=== PATIENT | female | born 1935 | race Caucasian/White ===

== ENCOUNTER 2017-09-22 08:45 | Inpatient (IN) | payer OTHER, BC ==
[~2017-09-22] VITALS: Ht 152.4 cm; Wt 88.4 kg
[~2017-09-22 08:45] MED LIST: ALEVE220 M2 PO; ANTIVERT25 MG PO; ASPIR-LOW81 MG PO; CALCIUM 500 +1 EACH PO; DAILY VITE1 EAC1 PO; GLUCOSAMINE CH1 EAC6 PO; LOPRESSOR25 MG PO; LOW DOSE ASPIRI81 M2 PO; MULTI-B-PLUS1 EACH PO; OMEPRAZOLE40 M1 PO; TYLENOL WITH C1 EACH PO; VALTREX1000 MG PO; VITAMIN C500 M4 PO
[2017-09-22 09:22] LABS: HEMATOCRIT 37.2 % (36.0-46.0); HEMOGLOBIN 12.8 G/DL (11.9-15.5); MCH 31.8 PG (29.0-34.0); MCHC 34.4 G/DL (30.0-36.0); MCV 92.3 FL (83-99); PLATELET COUNT 169 K/uL (156-360); RBC DIS.WIDTH-CV 13.9 % (11.8-14.6); RBC DIS.WIDTH-SD 47.3 % (39-53); RED BLOOD COUNT 4.03 M/uL (3.80-5.20)
[2017-09-22 09:34] LABS: CHLORIDE 108 mEq/L (99-109); POTASSIUM 5.2 mEq/L (3.7-5.4); SODIUM 141 mEq/L (136-147)
[2017-09-22 09:36] LABS: GLUCOSE 107 mg/dL (70-99)
[2017-09-22 09:40] LABS: CREATININE 0.8 mg/dL (0.6-1.3); GFR ESTIMATE (CALCULATED) > 59 mL/min/
[2017-09-22 09:41] LABS: UREA NITROGEN (BUN) 25 mg/dL (9-23)
[2017-09-22 12:17] LABS: APPEARANCE CLEAR ((CLEAR)); BILIRUBIN NEGATIVE; BLOOD NEGATIVE; COLOR YELLOW ((YELLOW)); GLUCOSE (STRIP) NEGATIVE; KETONES NEGATIVE; LEUKOCYTES NEGATIVE; NITRITE NEGATIVE; PROTEIN (STRIP) NEGATIVE; UROBILINOGEN 0.2 MG/DL (0.2-1.0)
[2017-09-22 16:47] VITALS: BP 143/69
[2017-09-22 19:23] VITALS: BP 131/62
[2017-09-22 23:05] VITALS: BP 105/51
[2017-09-23 03:28] VITALS: BP 114/55
[2017-09-23 06:05] LABS: HEMATOCRIT 35.9 % (36.0-46.0); HEMOGLOBIN 12.4 G/DL (11.9-15.5); MCH 31.6 PG (29.0-34.0); MCHC 34.5 G/DL (30.0-36.0); MCV 91.6 FL (83-99); PLATELET COUNT 165 K/uL (156-360); RBC DIS.WIDTH-SD 47.4 % (39-53); RED BLOOD COUNT 3.92 M/uL (3.80-5.20); WHITE BLOOD COUNT 7.2 K/uL (4.1-10.2)
[2017-09-23 06:20] LABS: CHLORIDE 109 MEQ/L (99-109); CREATININE 0.8 MG/DL (0.6-1.3); GFR ESTIMATE (CALCULATED) > 59 mL/min/; GLUCOSE 118 mg/dL (70-99); SODIUM 141 MEQ/L (136-147); UREA NITROGEN (BUN) 20 mg/dL (9-23)
[2017-09-23 06:27] LABS: POTASSIUM 3.9 MEQ/L (3.7-5.4)
[2017-09-23 08:00] VITALS: BP 119/60
[2017-09-23 11:16] VITALS: BP 143/67
[2017-09-23 15:31] VITALS: BP 136/85
[2017-09-23 19:12] VITALS: BP 163/74
[2017-09-23 23:58] LABS: HEMATOCRIT 30.2 % (36.0-46.0); MCV 94.4 FL (83-99)
[2017-09-24] VITALS (7 sets, daily range): BP systolic 100–117; BP diastolic 50–59
[2017-09-25] VITALS (7 sets, daily range): BP systolic 78–128; BP diastolic 46–59
[2017-09-26 03:55] VITALS: BP 119/57
[2017-09-26 07:25] VITALS: BP 113/56
[2017-09-26] MEDS ORDERED: TRAMADOL HCL50 MG PO (12:13)
[2017-09-26] MEDS ORDERED: ENDOCET 5-3251 EACH PO (12:13)
[2017-09-26] MEDS ORDERED: ELIQUIS2.5 MG PO (12:14)
[2017-09-26 13:36] LABS: HEMATOCRIT 24.7 % (36.0-46.0); HEMOGLOBIN 8.3 G/DL (11.9-15.5); MCV 93.2 FL (83-99)
[2017-09-26 13:58] LABS: TROP-I INTERPRETATION NEGATIVE; TROPONIN-I < 0.01 ng/mL (0.0-0.30)
[2017-09-26] MEDS ORDERED: DOCUSATE SODIU100 MG PO (14:40)
[2017-09-26] MEDS ORDERED: ONDANSETRON HCL4 MG PO (14:41)
[2017-09-26] MEDS ORDERED: PANTOPRAZOLE SO40 MG PO (14:42)
[2017-09-26] MEDS ORDERED: DIAZEPAM2 MG PO (14:43)
== END 2017-09-26 14:21 | DRG 470 ==
LOC: EME 08:45 → EDOF 10:17 → 3EAST 10:17 → ENRESERV 10:25 → EDOF 10:25 → ENRESERV 15:28 → 3EAST 16:15
PROVIDERS: Anesthesiology; Hospitalist; Internal Medicine; Physician Assistant
PROC: 0SRR0JZ Replacement of Right Hip Joint, Femoral Surface with Synthetic Substitute, Open Approach (ICD-10-PCS; principal; 2017-09-25)
DX: S72.011A Unspecified intracapsular fracture of right femur, initial encounter for closed fracture (principal); W01.0XXA Fall on same level from slipping, tripping and stumbling without subsequent striking against object, initial encounter; M19.90 Unspecified osteoarthritis, unspecified site; M85.80 Other specified disorders of bone density and structure, unspecified site; I10 Essential (primary) hypertension; E78.5 Hyperlipidemia, unspecified; Z96.653 Presence of artificial knee joint, bilateral; Z96.642 Presence of left artificial hip joint; E86.1 Hypovolemia; I95.9 Hypotension, unspecified; Z68.37 Body mass index [BMI] 37.0-37.9, adult; E66.01 Morbid (severe) obesity due to excess calories
CPT/HCPCS: 71045; 73501; 73502; 80048; 81003; 84484; 85014; 85018; 85027; 86850; 86900; 86901; 93005; 94799; 99281; 99285; C9113; J0131; J0690; J1170; J1885; J2250; J2405; J2710; J3010; J7040; J7042; J7643; S0020

== ENCOUNTER 2017-09-26 10:37 | Inpatient (IN) | payer OTHER, BC ==
[~2017-09-26] VITALS: Ht 152.4 cm; Wt 88.3 kg
[2017-09-26] MEDS ORDERED: TRAMADOL HCL50 MG PO (12:13)
[2017-09-26] MEDS ORDERED: ENDOCET 5-3251 EACH PO (12:13)
[2017-09-26] MEDS ORDERED: ELIQUIS2.5 MG PO (12:14)
[2017-09-26 13:25] VITALS: BP 102/57
[2017-09-26] MEDS ORDERED: DOCUSATE SODIU100 MG PO (14:40)
[2017-09-26] MEDS ORDERED: ONDANSETRON HCL4 MG PO (14:41)
[2017-09-26] MEDS ORDERED: PANTOPRAZOLE SO40 MG PO (14:42)
[2017-09-26] MEDS ORDERED: DIAZEPAM2 MG PO (14:43)
[2017-09-27 00:32] VITALS: BP 116/59
[2017-09-27 05:11] VITALS: BP 105/51
[2017-09-27 07:49] LABS: HEMATOCRIT 25.4 % (36.0-46.0); HEMOGLOBIN 8.3 G/DL (11.9-15.5); MCH 30.6 PG (29.0-34.0); MCHC 32.7 G/DL (30.0-36.0); MCV 93.7 FL (83-99); PLATELET COUNT 188 K/uL (156-360); RBC DIS.WIDTH-CV 13.8 % (11.8-14.6); WHITE BLOOD COUNT 6.4 K/uL (4.1-10.2)
[2017-09-27 07:53] LABS: RED BLOOD COUNT 2.71 M/uL (3.80-5.20)
[2017-09-27 08:17] LABS: ALBUMIN 2.3 G/DL (3.2-4.8); ALKALINE PHOSPHATASE 84 IU/L (3-129); ALT (GPT) 10 IU/L (3-49); AST (GOT) 18 IU/L (2-34); CHLORIDE 104 MEQ/L (99-109); CREATININE 0.7 MG/DL (0.6-1.3); GFR ESTIMATE (CALCULATED) > 59 mL/min/; GLUCOSE 107 mg/dL (70-99); POTASSIUM 4.6 MEQ/L (3.7-5.4); SODIUM 135 MEQ/L (136-147); TOTAL BILIRUBIN 0.5 MG/DL (0.0-1.0); TOTAL PROTEIN 4.8 G/DL (6.4-8.3); UREA NITROGEN (BUN) 14 mg/dL (9-23)
[2017-09-27 15:43] VITALS: BP 100/52
[2017-09-28 06:36] VITALS: BP 110/55
[2017-09-28 07:15] VITALS: BP 103/50
[2017-09-28 15:44] VITALS: BP 126/56
[2017-09-29 05:26] VITALS: BP 100/56
[2017-09-29 07:08] VITALS: BP 111/52
[2017-09-29 15:44] VITALS: BP 112/57
[2017-09-30 05:45] VITALS: BP 126/61
[2017-09-30 15:20] VITALS: BP 112/59
[2017-09-30 16:32] LABS: HEMATOCRIT 25.6 % (36.0-46.0); HEMOGLOBIN 8.4 G/DL (11.9-15.5); MCH 31.1 PG (29.0-34.0); MCHC 32.8 G/DL (30.0-36.0); MCV 94.8 FL (83-99); RBC DIS.WIDTH-CV 14.1 % (11.8-14.6); RBC DIS.WIDTH-SD 47.8 % (39-53); WHITE BLOOD COUNT 8.6 K/uL (4.1-10.2)
[2017-09-30 16:34] LABS: PLATELET COUNT 341 K/uL (156-360)
[2017-09-30 16:57] LABS: CHLORIDE 104 MEQ/L (99-109); CREATININE 0.8 MG/DL (0.6-1.3); GFR ESTIMATE (CALCULATED) > 59 mL/min/; GLUCOSE 106 mg/dL (70-99); POTASSIUM 3.9 MEQ/L (3.7-5.4); SODIUM 139 MEQ/L (136-147); UREA NITROGEN (BUN) 11 mg/dL (9-23)
[2017-10-01 04:56] VITALS: BP 122/59
[2017-10-01 16:14] VITALS: BP 123/59
[2017-10-02 06:11] VITALS: BP 122/58
[2017-10-02 16:20] VITALS: BP 115/58
[2017-10-03 05:57] VITALS: BP 116/54
[2017-10-03 12:42] VITALS: BP 148/82
[2017-10-03 15:15] VITALS: BP 98/51
[2017-10-03 16:34] VITALS: BP 108/58
[2017-10-04 05:46] LABS: BASOPHIL (%) 1.4 % (0-1); BASOPHIL COUNT 0.1 K/uL (0-0.1); EOSINOPHIL (%) 7.4 % (0-5); EOSINOPHIL COUNT 0.5 K/uL (0-0.3); HEMATOCRIT 25.7 % (36.0-46.0); HEMOGLOBIN 8.3 G/DL (11.9-15.5); IMMATURE GRANULOCYTE (%) 1.1 % (0.0-0.7); LYMPHOCYTE (%) 25.2 % (15-42); LYMPHOCYTE COUNT 1.6 K/uL (1.0-2.8); MCH 31.1 PG (29.0-34.0); MCHC 32.3 G/DL (30.0-36.0); MCV 96.3 FL (83-99); MONOCYTE (%) 6.4 % (3-12); MONOCYTE COUNT 0.4 K/uL (0-0.8); NEUTROPHIL (%) 58.5 % (45-76); NEUTROPHIL COUNT 3.7 K/uL (1.8-6.4); RBC DIS.WIDTH-CV 15.2 % (11.8-14.6); RBC DIS.WIDTH-SD 51.1 % (39-53); RED BLOOD COUNT 2.67 M/uL (3.80-5.20); WHITE BLOOD COUNT 6.2 K/uL (4.1-10.2)
[2017-10-04 05:49] LABS: PLATELET COUNT 465 K/uL (156-360)
[2017-10-04 05:53] VITALS: BP 115/58
[2017-10-04 06:07] LABS: ALBUMIN 2.6 G/DL (3.2-4.8); ALKALINE PHOSPHATASE 103 IU/L (3-129); ALT (GPT) 15 IU/L (3-49); AST (GOT) 13 IU/L (2-34); CHLORIDE 104 MEQ/L (99-109); CREATININE 0.8 MG/DL (0.6-1.3); GFR ESTIMATE (CALCULATED) > 59 mL/min/; GLUCOSE 98 mg/dL (70-99); SODIUM 141 MEQ/L (136-147); TOTAL PROTEIN 4.6 G/DL (6.4-8.3); UREA NITROGEN (BUN) 11 mg/dL (9-23)
[2017-10-04 06:08] LABS: POTASSIUM 5.2 MEQ/L (3.7-5.4); TOTAL BILIRUBIN 0.3 MG/DL (0.0-1.0)
[2017-10-04 15:13] VITALS: BP 103/53
[2017-10-05 05:32] VITALS: BP 110/55
[2017-10-05 07:04] VITALS: BP 98/51
[2017-10-05 15:36] VITALS: BP 96/48
[2017-10-06 05:11] VITALS: BP 117/55
[2017-10-06 07:04] VITALS: BP 110/51
[2017-10-06] MEDS ORDERED: SENNA PLUS TAB1 EACH PO (13:05)
[2017-10-06] MEDS ORDERED: TYLENOL REGULA325 MG PO (13:05)
[2017-10-06] MEDS ORDERED: FERROUS SULFAT325 MG PO (13:05)
[2017-10-06] MEDS ORDERED: Milk Of Magnesia,MOM PO (13:05)
[2017-10-06] MEDS ORDERED: ENDOCET 5-3251 EACH PO (13:05)
[2017-10-06] MEDS ORDERED: BENADRYL25 MG PO (13:05)
[2017-10-06] MEDS ORDERED: DOCUSATE SODIU100 MG PO (13:05)
[2017-10-06] MEDS ORDERED: ELIQUIS2.5 MG PO (13:05)
[2017-10-06] MEDS ORDERED: CALCIUM CARB1 TABLET PO (13:05)
== END 2017-10-06 14:10 | disposition home health service (06) | DRG 560 ==
LOC: 3WEST 10:37 → ENPENDDIS 10-06 → 3WEST 10-06 14:10
PROVIDERS: Physical Medicine & Rehabilitation Pain Medicine; Psychiatry & Neurology Neurology
PROC: F07M0ZZ Range of Motion and Joint Mobility Treatment of Musculoskeletal System - Whole Body (ICD-10-PCS; principal; 2017-09-26)
DX: Z47.1 Aftercare following joint replacement surgery (principal); S72.011D Unspecified intracapsular fracture of right femur, subsequent encounter for closed fracture with routine healing; W22.03XD Walked into furniture, subsequent encounter; D62 Acute posthemorrhagic anemia; G89.18 Other acute postprocedural pain; M25.551 Pain in right hip; R26.2 Difficulty in walking, not elsewhere classified; Z91.81 History of falling; R60.0 Localized edema; R53.82 Chronic fatigue, unspecified; K20.9 Esophagitis, unspecified; M85.80 Other specified disorders of bone density and structure, unspecified site; M19.90 Unspecified osteoarthritis, unspecified site; I83.90 Asymptomatic varicose veins of unspecified lower extremity; E83.51 Hypocalcemia; K30 Functional dyspepsia; Z96.641 Presence of right artificial hip joint; Z96.653 Presence of artificial knee joint, bilateral; L29.9 Pruritus, unspecified
CPT/HCPCS: 80048; 80053; 85025; 85027; 93971; 97110 GO; 97530 GP

== ENCOUNTER 2017-12-23 21:21 | Emergency (ER) | payer OTHER, BC ==
[~2017-12-23] VITALS: Ht 152.4 cm; Wt 82.5 kg
[~2017-12-23 21:21] MED LIST changes: +BENADRYL25 MG PO; +CALCIUM CARB1 TABLET PO; +DIAZEPAM2 MG PO; +DOCUSATE SODIU100 MG PO; +ELIQUIS2.5 MG PO; +ENDOCET 5-3251 EACH PO; +FERROUS SULFAT325 MG PO; +Milk Of Magnesia,MOM PO; +ONDANSETRON HCL4 MG PO; +PANTOPRAZOLE SO40 MG PO; +SENNA PLUS TAB1 EACH PO; +TRAMADOL HCL50 MG PO; +TYLENOL REGULA325 MG PO
[2017-12-23 22:11] LABS: HEMATOCRIT 37.2 % (36.0-46.0); HEMOGLOBIN 12.5 G/DL (11.9-15.5); MCH 30.4 PG (29.0-34.0); MCHC 33.6 G/DL (30.0-36.0); MCV 90.5 FL (83-99); PLATELET COUNT 212 K/uL (156-360); RBC DIS.WIDTH-CV 14.3 % (11.8-14.6); RBC DIS.WIDTH-SD 47.6 % (39-53); RED BLOOD COUNT 4.11 M/uL (3.80-5.20); WHITE BLOOD COUNT 7.5 K/uL (4.1-10.2)
[2017-12-23 22:22] LABS: CHLORIDE 107 mEq/L (99-109); POTASSIUM 4.5 mEq/L (3.7-5.4); SODIUM 142 mEq/L (136-147)
[2017-12-23 22:24] LABS: GLUCOSE 116 mg/dL (70-99)
[2017-12-23 22:28] LABS: CREATININE 1.1 mg/dL (0.6-1.3); GFR ESTIMATE (CALCULATED) 50 mL/min/
[2017-12-23 22:29] LABS: UREA NITROGEN (BUN) 20 mg/dL (9-23)
[2017-12-23 23:01] LABS: ALBUMIN 3.7 g/dL (3.2-4.8)
[2017-12-23 23:03] LABS: TOTAL PROTEIN 6.5 g/dL (6.4-8.3)
[2017-12-23 23:05] LABS: TOTAL BILIRUBIN 0.3 mg/dL (0.0-1.0)
[2017-12-23 23:06] LABS: ALKALINE PHOSPHATASE 110 IU/L (3-129)
[2017-12-23 23:09] LABS: ALT (GPT) 15 IU/L (3-49); AST (GOT) 19 IU/L (2-34); DIRECT BILIRUBIN 0.1 mg/dL (0.0-0.3)
[2017-12-23 23:10] LABS: LIPASE 45 U/L (1.0-51.0)
[2017-12-23 23:16] LABS: TROP-I INTERPRETATION NEGATIVE; TROPONIN-I < 0.01 ng/mL (0.0-0.30)
[2017-12-24] MEDS ORDERED: LIDOCAINE700 MG TP (01:46)
[2017-12-24] MEDS ORDERED: NORCO 5/3251 TABLET PO (01:46)
[2017-12-24 02:33] LABS: TROP-I INTERPRETATION NEGATIVE; TROPONIN-I 0.01 ng/mL (0.0-0.30)
[2017-12-24 04:04] VITALS: BP 148/79
== END 2017-12-24 02:59 | disposition home or self-care (01) ==
LOC: EME → EDBD 21:21 → EME 12-24 02:59
PROVIDERS: Emergency Medicine
PROC: 0HQCXZZ Repair Left Upper Arm Skin, External Approach (ICD-10-PCS; principal; 2017-12-23)
DX: S22.20XA Unspecified fracture of sternum, initial encounter for closed fracture (principal); S51.012A Laceration without foreign body of left elbow, initial encounter; S20.219A Contusion of unspecified front wall of thorax, initial encounter; V49.40XA Driver injured in collision with unspecified motor vehicles in traffic accident, initial encounter; Y92.410 Unspecified street and highway as the place of occurrence of the external cause; K21.9 Gastro-esophageal reflux disease without esophagitis; M85.80 Other specified disorders of bone density and structure, unspecified site; M19.90 Unspecified osteoarthritis, unspecified site; Z96.653 Presence of artificial knee joint, bilateral; Z96.642 Presence of left artificial hip joint
CPT/HCPCS: 70450; 71046; 71275; 72125; 73080; 80048; 80076; 83690; 84484; 85027; 93005; 99281; 99285; J3010; J7030